=== PATIENT | female | born 1960 | race Caucasian/White ===

== ENCOUNTER 2018-08-06 13:24 | Outpatient (CLI) | payer OTHER ==
[~2018-08-06 13:24] MED LIST: Gadobenate Dimeglumine 529 MG/1 ML (20ML VIAL) ONE
--- NOTE | 2018-08-07 10:05 | MRI ---
MRI OF THE LEFT HIP WITH AND WITHOUT IV CONTRAST: Date: 08/06/18 PROVIDED CLINICAL HISTORY: Left hip pain. FINDINGS: Correlation is made with radiographs performed 07/27/18. There is abnormal signal alteration present within the left acetabulum, left acetabular/pubic junctio n, and left supraacetabular iliac bone. This corresponds to the lytic lesion seen on referenced radio graphs. This mass demonstrates signal intensity on T1-weighted sequences isointense to skeletal muscl e and signal intensity hyperintense to skeletal muscle on fluid sensitive sequences. This lesion demo nstrates multifocal endosteal scalloping. There is an area of apparent cortical breakthrough near the cranial aspects of this mass at the medially(axial T2-weighted image 50 of 57). There is a small michelle arent adjacent enhancing focus. There is signal alteration within the obturator internus muscle at it s deep margin adjacent to the acetabulum on fluid sensitive sequences, demonstrating contrast enhance ment. Similar changes are also seen at the lateral margin of the acetabulum involving the gluteus min imus muscle at its deep margin. There is patchy primarily peripheral contrast enhancement. The amount of fluid within the left hip joint appears physiologic. There is effacement of the anterio r acetabular articular cortex inferiorly without definite enhancing material within the left hip join t. No additional region marrow signal abnormality is evident. The left hip flexor, abductor, adductor, a nd hamstring tendons appear intact. The courses of the regional major neurovascular structures appear unremarkable. IMPRESSION: Mass in the region of the left acetabulum with aggressive features as described above. The radiograph ic appearance of this process is nonspecific. Statistically, this would represent a metastatic lesion . Correlation with whole body bone scan to evaluate for additional potential sites of involvement [place] uld be considered. CODE T. POS: ATUL
== END 2018-08-06 13:25 | disposition home or self-care (01) ==
LOC: SCSMRI 13:24
PROVIDERS: ATTEND Orthopaedic Surgery
DX: M25.852 Other specified joint disorders, left hip (principal)
CPT/HCPCS: 82565; A9579